=== PATIENT | female | born 1995 | race Caucasian/White ===

== ENCOUNTER 2018-07-09 23:19 | Emergency (ER) | payer BC ==
[~2018-07-09 23:19] MED LIST: CLIN30GE15 TP; NORG1TAB75 PO; TRET20CR37 TP; VENL75TA12 FT
--- NOTE | 2018-07-09 23:33 | ER Report ---
History and Physical Time Seen By MD: 23:33 HPI/ROS CHIEF COMPLAINT: Right upper quadrant abdominal pain HISTORY OF PRESENT ILLNESS: Patient is a 23-year-old female here with complaints of epigastric and right upper quadrant abdominal pain which started proximally 45 minutes prior to arrival. Patient describes severe acute onset pain with ass ociated nausea. Denies prior history of abdominal surgeries. Patient is afebrile, hemodynamically stable at time of evaluation. REVIEW OF SYSTEMS: Constitutional: No fever, no chills. Eyes: No discharge. ENT: No sore throat. Cardiovascular: No chest pain, no palpitations. Respiratory: No cough, no shortness of breath. Gastrointestinal: + Right upper quadrant and midepigastric abdominal pain, no vomiting. Genitourinary: No hematuria. Musculoskeletal: No back pain. Skin: No rashes. Neurological: No headache. Allergies: Coded Allergies: Milk Containing Products (Verified Allergy, Unknown, 07/09/18) corn (Verified Allergy, Unknown, 07/09/18) grass pollen-perennial rye, standar (Verified Allergy, Unknown, 07/09/18) oats (Verified Allergy, Unknown, 07/09/18) soy (Verified Allergy, Unknown, 07/09/18) strawberry (Verified Allergy, Unknown, 07/09/18) Uncoded Allergies: almonds (Allergy, Unknown, 06/20/18) green beans (Allergy, Unknown, 06/20/18) Home Meds Active Scripts Omeprazole (OMEPRAZOLE) 20 Mg Capsule.dr, 1 CAP PO QDAY, #30 CAP Prov:KHADAR OHARA DO 07/10/18 Ondansetron 4 Mg Odt (ONDANSETRON 4 MG ODT) 4 Mg Tab.rapdis, 4 MG PO ONCE, #20 TAB Prov:KHADAR OHARA DO 07/10/18 Reported Medications Venlafaxine Hcl (VENLAFAXINE HCL) 75 Mg Tab, 75 MG FT QDAY, TAB 06/12/18 Norgestimate-Ethinyl Estradiol (TRI-SPRINTEC) 1 Each Tablet, 1 TAB PO QDAY 05/03/18 Discontinued Scripts Tretinoin 0.025% Cream (TRETINOIN 0.025% CREAM) 20 Gm Cream..g., 1 BORA TP QHS for 30 Days, #1 TUBE 2 Refills Prov:LIZ BLOOD COUNT INCLUDES THE [facility] 06/20/18 Clindamycin Phosphate (CLINDAMYCIN PHOSPHATE) 30 Gm Gel..gram., 1 BORA TP QAM for 30 Days, #1 TUBE 2 Refills Prov:LIZ BLOOD COUNT INCLUDES THE [facility] 06/20/18 Constitutional Vital Sign - Last 24 Hours 07/09/18 23:20 Temp 98.7 Pulse 63 Resp 24 B/P (MAP) 13/98 Pulse Ox 97 Intake and Output 07/09/18 07/09/18 07/10/18 15:00 23:00 07:00 Intake Total 1000 ml Balance 1000 ml Physical Exam General Appearance: The patient is alert, has no immediate need for airway protection and no signs of toxicity. Uncomfortable appearing Eyes: Pupils equal and round no pallor or injection. ENT, Mouth: Mucous membranes are moist. Respiratory: There are no retractions, lungs are clear to auscultation. Cardiovascular: Regular rate and rhythm. Gastrointestinal: Abdomen is soft and moderately tender on palpation in the midepigastrium and right upper quadrant. No rebound or guarding Neurological: No focal neurological deficits Skin: Warm and dry, no rashes. Musculoskeletal: Neck is supple non tender. Extremities are nontender, nonswollen and have full range of motion. DIFFERENTIAL DIAGNOSIS: After history and physical exam differential diagnosis was considered for abdominal pain including but not limited to appendicitis, cholecystitis, gastritis and urinary tract infection. Medical Decision Making Data Points Result Diagram: 07/09/189 07/09/18 2339 Laboratory Hematology Test 07/09/18 23:39 Red Blood Count 4.89 M/uL (4.17-5.56) Mean Corpuscular Volume 88.0 fL (80.0-96.0) Mean Corpuscular Hemoglobin 29.3 pg (26.0-33.0) Mean Corpuscular Hemoglobin Concent 33.3 g/dL (32.0-36.0) Red Cell Distribution Width 12.9 % (11.5-14.5) Mean Platelet Volume 8.8 fL (7.2-11.1) Neutrophils (%) (Auto) 36.7 % (39.4-72.5) Lymphocytes (%) (Auto) 55.0 % (17.6-49.6) Monocytes (%) (Auto) 4.7 % (4.1-12.4) Eosinophils (%) (Auto) 3.2 % (0.4-6.7) Basophils (%) (Auto) 0.4 % (0.3-1.4) Nucleated RBC Relative Count (auto) 0.0 /100WBC Neutrophils # (Auto) 3.0 K/uL (2.0-7.4) Lymphocytes # (Auto) 4.6 K/uL (1.3-3.6) Monocytes # (Auto) 0.4 K/uL (0.3-1.0) Eosinophils # (Auto) 0.3 K/uL (0.0-0.5) Basophils # (Auto) 0.0 K/uL (0.0-0.1) Nucleated RBC Absolute Count (auto) 0.00 K/uL Urine Color Straw Urine Clarity Clear Urine pH 6.0 pH (4.8-9.5) Urine Specific Alpha 1.009 Urine Protein Negative mg/dL (NEGATIVE) Urine Glucose (UA) Negative mg/dL (NEGATIVE) Urine Ketones Negative mg/dL (NEGATIVE) Urine Blood Small (NEGATIVE) Urine Nitrite Negative (NEGATIVE) Urine Bilirubin Negative (NEGATIVE) Urine Urobilinogen Negative mg/dL (0.2-1.9) Urine Leukocyte Esterase Negative (NEGATIVE) Urine RBC <1 /HPF (0-2/HPF) Urine WBC None /HPF (0-5/HPF) Urine Squamous Epithelial Cells Many /LPF (</=FEW) Urine Bacteria Negative /HPF (NONE-FEW) Urine Mucus Few /HPF (NONE-FEW) Sodium Level 141 mmol/L (137-145) Potassium Level 3.9 mmol/L (3.5-5.0) Chloride Level 102 mmol/L (98-107) Carbon Dioxide Level 27 mmol/L (22-31) Blood Urea Nitrogen 11 mg/dl (7-18) Creatinine 0.80 mg/dl (0.52-1.04) Glomerular Filtration Rate Calc > 60.0 Random Glucose 94 mg/dl (75-110) Calcium Level 9.4 mg/dl (8.4-10.2) Total Bilirubin 0.3 mg/dl (0.2-1.3) Aspartate Amino Transf (AST/SGOT) 27 U/L (0-35) Alanine Aminotransferase (ALT/SGPT) 24 U/L (0-56) Alkaline Phosphatase 59 U/L (0-126) Total Protein 7.8 g/dl (6.3-8.2) Albumin 4.5 g/dl (3.5-5.0) Lipase 160 U/L (23-300) Human Chorionic Gonadotropin, Qual Negative (NEGATIVE) Chemistry Test 07/09/18 23:39 White Blood Count 8.3 k/uL (4.5-11.0) Red Blood Count 4.89 M/uL (4.17-5.56) Hemoglobin 14.3 g/dL (12.0-16.0) Hematocrit 43.0 % (34.0-47.0) Mean Corpuscular Volume 88.0 fL (80.0-96.0) Mean Corpuscular Hemoglobin 29.3 pg (26.0-33.0) Mean Corpuscular Hemoglobin Concent 33.3 g/dL (32.0-36.0) Red Cell Distribution Width 12.9 % (11.5-14.5) Platelet Count 292 K/uL (150-450) Mean Platelet Volume 8.8 fL (7.2-11.1) Neutrophils (%) (Auto) 36.7 % (39.4-72.5) Lymphocytes (%) (Auto) 55.0 % (17.6-49.6) Monocytes (%) (Auto) 4.7 % (4.1-12.4) Eosinophils (%) (Auto) 3.2 % (0.4-6.7) Basophils (%) (Auto) 0.4 % (0.3-1.4) Nucleated RBC Relative Count (auto) 0.0 /100WBC Neutrophils # (Auto) 3.0 K/uL (2.0-7.4) Lymphocytes # (Auto) 4.6 K/uL (1.3-3.6) Monocytes # (Auto) 0.4 K/uL (0.3-1.0) Eosinophils # (Auto) 0.3 K/uL (0.0-0.5) Basophils # (Auto) 0.0 K/uL (0.0-0.1) Nucleated RBC Absolute Count (auto) 0.00 K/uL Urine Color Straw Urine Clarity Clear Urine pH 6.0 pH (4.8-9.5) Urine Specific Alpha 1.009 Urine Protein Negative mg/dL (NEGATIVE) Urine Glucose (UA) Negative mg/dL (NEGATIVE) Urine Ketones Negative mg/dL (NEGATIVE) Urine Blood Small (NEGATIVE) Urine Nitrite Negative (NEGATIVE) Urine Bilirubin Negative (NEGATIVE) Urine Urobilinogen Negative mg/dL (0.2-1.9) Urine Leukocyte Esterase Negative (NEGATIVE) Urine RBC <1 /HPF (0-2/HPF) Urine WBC None /HPF (0-5/HPF) Urine Squamous Epithelial Cells Many /LPF (</=FEW) Urine Bacteria Negative /HPF (NONE-FEW) Urine Mucus Few /HPF (NONE-FEW) Glomerular Filtration Rate Calc > 60.0 Calcium Level 9.4 mg/dl (8.4-10.2) Total Bilirubin 0.3 mg/dl (0.2-1.3) Aspartate Amino Transf (AST/SGOT) 27 U/L (0-35) Alanine Aminotransferase (ALT/SGPT) 24 U/L (0-56) Alkaline Phosphatase 59 U/L (0-126) Total Protein 7.8 g/dl (6.3-8.2) Albumin 4.5 g/dl (3.5-5.0) Lipase 160 U/L (23-300) Human Chorionic Gonadotropin, Qual Negative (NEGATIVE) Urinalysis Test 07/09/18 23:39 Urine Color Straw Urine Clarity Clear Urine pH 6.0 pH (4.8-9.5) Urine Specific Alpha 1.009 Urine Protein Negative mg/dL (NEGATIVE) Urine Glucose (UA) Negative mg/dL (NEGATIVE) Urine Ketones Negative mg/dL (NEGATIVE) Urine Blood Small (NEGATIVE) Urine Nitrite Negative (NEGATIVE) Urine Bilirubin Negative (NEGATIVE) Urine Urobilinogen Negative mg/dL (0.2-1.9) Urine Leukocyte Esterase Negative (NEGATIVE) Urine RBC <1 /HPF (0-2/HPF) Urine WBC None /HPF (0-5/HPF) Urine Squamous Epithelial Cells Many /LPF (</=FEW) Urine Bacteria Negative /HPF (NONE-FEW) Urine Mucus Few /HPF (NONE-FEW) EKG/Imaging Imaging PATIENT NAME: Kristin Payne : 1995 MR: [id number] V: [id number] EXAM DATE: ORDERING PHYSICIAN: KHADAR OHARA TECHNOLOGIST: Location: [facility] Patient: Kristin Payne : 1995 Visit/Account:[id number] Date of Sevice: 07/09/2018 COMPUTED TOMOGRAPHY ABDOMEN AND PELVIS WITH INTRAVENOUS CONTRAST DATE OF EXAM: 07/09/2018 11:46 PM INDICATION: Right upper quadrant pain, nausea for one day. COMPARISON: None. TECHNIQUE: Contrast enhanced abdomen and pelvis CT performed during the injection of 75 ml of Isovue 370. Sagittal and coronal reconstructions were performed. One of the following dose optimization techniques was utilized in the performance of this exam: Automated exposure control; adjustment of the mA and/or kV according to the patient's size; or use of an iterative reconstruction technique. Specific details can be referenced in the facility's radiology CT exam operational policy. FINDINGS: Lung bases: Clear. Liver and hepatic vasculature: Normal. Gallbladder and bile ducts: Normal. Spleen: Normal. Pancreas: Normal. Adrenals: Normal. Kidneys, ureters and bladder: Normal. Retroperitoneum and aorta: Normal. GI tract, mesentery and peritoneum: Moderate amount of stool in the colon. No evidence of obstruction. No pneumatosis, pneumoperitoneum or significant free fluid. Normal appendix. Uterus and adnexa: Normal. Bones and soft tissues: No acute abnormality or suspicious lesion. IMPRESSION: Moderate amount of stool in the colon could indicate a degree of constipation. Otherwise nonacute. ED Course/Re-evaluation ED Course Patient is a 23-year-old female here with complaints of upper abdominal pain with distribution to the right upper quadrant. There is no leukocytosis, electrolytes are stable, urinalysis is unremarkable on labs. CT imaging was unremarkable and showed no acute findings of infectious etiology. I performed a bedside ultrasound looking at the patient's gallbladder or no signs of stones or sludging or pericholecystic fluid or gallbladder wall thickening. Patient was started on omeprazole and given a prescription for Zofran as well for outpatient symptomatic treatment. Close PCP follow-up recommended. Return precautions were provided. Decision to Disposition Date: July 10, 2018 Decision to Disposition Time: 01:12 Depart Departure Latest Vital Signs Vital Signs Date Time Temp Pulse Resp B/P (MAP) Pulse Ox O2 Delivery O2 Flow Rate FiO2 07/09/18 23:20 98.7 63 24 13/98 97 Impression: Primary Impression: Abdominal pain Condition: Improved Disposition: HOME OR SELF-CARE Referrals: NADINE MAGAÑA (PCP) New Scripts Omeprazole (OMEPRAZOLE) 20 Mg Capsule.dr [place] CAP PO QDAY, #30 CAP Prov: KHADAR OHARA DO 07/10/18 Ondansetron 4 Mg Odt (ONDANSETRON 4 MG ODT) 4 Mg Tab.rapdis 4 MG PO ONCE, #20 TAB Prov: KHADAR OHARA DO 07/10/18 Patient Instructions: Abdominal Pain (ED) Additional Instructions: Please drink plenty of water. Today your CT scan showed no signs of infection or blockages. Please take omeprazole 1 tablet daily in the morning for the next 2 weeks, in the meantime please follow-up with your primary care physician. You may take Zofran 1 tablet every 4-6 hours as needed for nausea. Please return immediately if you develop worsening abdominal pain, recurrent episodes, fevers, abdominal distention, blood in the stools or urine, inability to keep down food or fluids. KHADAR OHARA DO July 09, 2018 23:33
[2018-07-09] MEDS ORDERED: NS(*) 0.9% 1000 ML BAG 1,000 ML IV ONE (23:46)
[2018-07-09] MEDS ORDERED: ONDANSETRON 4 MG/2 ML VIAL IVP ONE (23:50)
[2018-07-10] LABS: PLATELET COUNT, AUTOMATED 292 K/uL (150-450)
[2018-07-10] MEDS ORDERED: IOPAMIDOL 76% 100 ML INFUS BTL 100 ML ONE (00:06)
--- NOTE | 2018-07-10 00:41 | RADIOLOGY IMAGING REPORT ---
[place] [facility] [place] Kristin Payne : 1995 MR: [id number] V: [id number] EXAM DATE: [id number] ORDERING PHYSICIAN: KHADAR OHARA TECHNOLOGIST: Location: [facility] Patient: Kristin Payne : 1995 Visit/Account:[id number] Date of Sevice: 07/09/2018 COMPUTED TOMOGRAPHY ABDOMEN AND PELVIS WITH INTRAVENOUS CONTRAST DATE OF EXAM: 07/09/2018 11:46 PM INDICATION: Right upper quadrant pain, nausea for one day. COMPARISON: None. TECHNIQUE: Contrast enhanced abdomen and pelvis CT performed during the injection of 75 ml of Isovue 370. Sagittal and coronal reconstructions were performed. One of the following dose optimization te chniques was utilized in the performance of this exam: Automated exposure control; adjustment of the mA and/or kV according to the patient's size; or use of an iterative reconstruction technique. Spec [facility] details can be referenced in the facility's radiology CT exam operational policy. FINDINGS: Lung bases: Clear. Liver and hepatic vasculature: Normal. Gallbladder and bile ducts: Normal. Spleen: Normal. Pancreas: Normal. Adrenals: Normal. Kidneys, ureters and bladder: Normal. Retroperitoneum and aorta: Normal. GI tract, mesentery and peritoneum: Moderate amount of stool in the colon. No evidence of obstructi on. No pneumatosis, pneumoperitoneum or significant free fluid. Normal appendix. Uterus and adnexa: Normal. Bones and soft tissues: No acute abnormality or suspicious lesion. IMPRESSION: Moderate amount of stool in the colon could indicate a degree of constipation. Otherwise nonacute. Report Dictated By: Marck Suggs MD at 07/10/2018 12:30 AM Report E-Signed By: Marck Suggs MD at 07/10/2018 12:38 AM WSN:[id number]
[2018-07-10] MEDS ORDERED: OMEP-125 PO (01:16)
[2018-07-10] MEDS ORDERED: ONDA4TAB9 PO (01:16)
[2018-07-10 01:30] VITALS: BP 115/81
[2018-07-10] MEDS ORDERED: ONDANSETRON 4 MG ODT TH ONE (01:30)
== END 2018-07-10 01:34 | disposition home or self-care (01) ==
LOC: ER 23:38
DX: R10.11 Right upper quadrant pain (principal); R10.13 Epigastric pain; R11.0 Nausea
CPT/HCPCS: 74177; 81001; 83690; 84703; 85025; 96361; 96374; 99284; J2405; J7030; Q9967; S0119; 82040; 82247; 82310; 82374; 82435; 82565; 82947; 84075; 84132; 84155; 84295; 84450; 84460; 84520